=== PATIENT | female | born 1990 | race Two or more races ===

== ENCOUNTER 2024-03-26 13:34 | Emergency (ER) | payer OTHER ==
[~2024-03-26] VITALS: Ht 162.6 cm; Wt 54.4 kg
[2024-03-26] MEDS ORDERED: LORazepam 2 MG/ML VIAL IM ONE (16:45)
[2024-03-26] MEDS ORDERED: KETOROLAC TROMETHAMINE 60 MG VIAL IM ONE ×2 (16:45→17:46)
[2024-03-26] MEDS ORDERED: ORPHENADRINE CITRATE 30 MG/ML AMPUL IM ONE (16:45)
[2024-03-26] MEDS ORDERED: NORFLEX100MG PO (17:40)
[2024-03-26] MEDS ORDERED: KETO10TA2 PO (17:40)
[2024-03-26] MEDS ORDERED: ORPHENADRINE CITRATE 30 MG/ML AMPUL ONE (17:46)
[2024-03-26] MEDS ORDERED: LORazepam 2 MG/ML DISP.SYRIN ONE (17:48)
== END 2024-03-26 20:10 | disposition home or self-care (01) ==
LOC: ER 13:36
DX: M62.838 Other muscle spasm (principal); Z88.6 Allergy status to analgesic agent

== ENCOUNTER 2024-05-17 16:42 | Emergency (ER) | payer OTHER ==
[~2024-05-17] VITALS: Ht 162.6 cm; Wt 55.3 kg
[~2024-05-17 16:42] MED LIST: KETO10TA2 PO; NORFLEX100MG PO
[2024-05-17] MEDS ORDERED: KETOROLAC TROMETHAMINE 30 MG VIAL IM STA (19:13)
[2024-05-17] MEDS ORDERED: ACETAMINOPHEN 500 MG GEL..CAP PO STA (19:13)
[2024-05-17] MEDS ORDERED: ACETAMINOPHEN 500 MG GEL..CAP PO ONE (19:27)
[2024-05-17] MEDS ORDERED: KETOROLAC TROMETHAMINE 30 MG VIAL ONE (19:27)
[2024-05-17 19:58] LABS: PH,URINE 7.5 (5.0-8.0); URINE APPEARANCE Error; URINE BILIRRUBIN Negative (NEGATIVE); URINE BLOOD Negative; URINE COLOR Yellow; URINE GLUCOSE Negative (NEGATIVE); URINE KETONE 15 (NEGATIVE); URINE LEUKOCYTE Negative; URINE NITRATE Negative; URINE PROTEIN Negative (NEGATIVE); URINE UROBILINOGEN 0.2 E.U./dl
[2024-05-17 20:02] LABS: HEMATOCRIT 40.8 % (36.0-45.00); HEMOGLOBIN 13.6 g/dL (12.0-15.00); MEAN CELL VOLUME 92.9 fL (80.00-100.00); MEAN CORPUSCULAR HEMOGLOBIN 31.1 pg (27.00-32.0); MEAN CORPUSCULAR HGB CONC 33.4 g/dl (32.0-36.0); PLATELET COUNT 168 K/uL (150-450); RED BLOOD COUNT 4.39 M/uL (4.00-6.00); RED CELL DISTRIBUTION WIDTH 13.7 % (11.5-14.5); URINE BACTERIA 1106.3 uL (0.0-1933); URINE EPITHELIAL CELLS 36.4 uL (0.0-38.8)
[2024-05-17 20:09] LABS: URINE CAST 0.14 uL (0.0-1.40)
[2024-05-17] MEDS ORDERED: ZITHROMAX500 MG PO (20:33)
== END 2024-05-17 20:57 | disposition home or self-care (01) ==
LOC: ER 16:43
DX: B34.9 Viral infection, unspecified (principal); R50.9 Fever, unspecified; Z20.822 Contact with and (suspected) exposure to COVID-19; Z88.6 Allergy status to analgesic agent